=== PATIENT | female | born 1955 | race Caucasian/White ===

== ENCOUNTER 2020-09-20 07:09 | Outpatient (CLI) | payer BC, SELFPAY ==
--- NOTE | 2020-09-20 07:18 | MM_ITS ---
WS: [id number] Bilateral screening digital mammogram, 09/20/2020 Clinical Data: SCREENING Comparison: 02/05/2019, 07/21/2013, 01/23/2010, 12/29/2006. Findings: The breast parenchymal pattern shows fibroglandular tissue. No spiculated masses or clustered calcifi cations are seen. There are no secondary signs of carcinoma. MM/[id number] Impression: 1. Negative bilateral mammogram unchanged. 2. Recommend annual screening mammograms. BIRADS: 1-Negative FOLLOW UP: 1 Year Follow-up The CAD pattern checker was used.
== END 2020-09-20 07:10 | disposition home or self-care (01) ==
LOC: RADSHAW 07:17
PROVIDERS: PCP Family Medicine; Visit Provider Nurse Practitioner
DX: Z12.31 Encounter for screening mammogram for malignant neoplasm of breast (principal)
CPT/HCPCS: 77067

== ENCOUNTER 2020-10-08 04:45 | Emergency (ER) | payer BC, SELFPAY ==
[2020-10-08 04:57] VITALS: BP 148/83; PULSE 57; RESP 16; TEMP 36.6; O2SAT 99; BMI 32.3
--- NOTE | 2020-10-08 05:23 | ECG_ITS ---
[facility] Test Date: 2020-10-08 Pat Name: Cleopatra Mcguire Department: Room: Gender: Female Neon Installer: : 1955 Requested By: Marcial Herring Order Number: [id number] Irlanda MD: Elijah Darling M.D. Measurements Intervals [place] Rate: 53 P: 12 MD: 165 QRS: -1 QRSD: 97 T: 15 QT: 453 QTc: 426 Interpretive Statements SINUS BRADYCARDIA MODERATE VOLTAGE CRITERIA FOR LVH, CONSIDER NORMAL VARIANT [MEETS CRITERIA IN ONE OF: R(aVL), S(V1), R(V5), R(V5/V6)+S(V1)] No previous ECG available for comparison Electronically Signed On 10-08-2020 11:15:19 PROJECT DEVELOPER by Elijah Darling M.D. [id number]
--- NOTE | 2020-10-08 05:23 | XRR_ITS ---
PROCEDURE INFORMATION: Exam: XR Chest, 1 View Exam date and time: 10/08/2020 5:24 AM Age: 65 years old Clinical indication: Shortness of breath; Additional info: Syncope TECHNIQUE: Imaging protocol: XR of the chest Views: 1 view. COMPARISON: No relevant prior studies available. FINDINGS: Lungs: Unremarkable. No consolidation. Pleural space: Unremarkable. No pleural effusion. No pneumothorax. Heart/Mediastinum: Unremarkable. No cardiomegaly. Bones/joints: Unremarkable. XR/XR chest 1V portable [id number] IMPRESSION: No acute findings.
--- NOTE | 2020-10-08 05:24 | W.ED.SYNCOPE ---
Documented by User: Marcial Stuart, 10/08/20 06:18 HPI - Syncope General: Chief Complaint: Syncope Stated Complaint: LOSS of Con. Time Seen by Provider: 10/08/20 05:07 History of Present Illness: HPI narrative: 65-year-old female presents after a period of syncope. She states that she woke up coughing, was a bit short of breath with it, and went to get her inhaler out of her purse. After she made it to her purse, and used her inhaler, she blacked out. Her heard her hit the floor, and when in a couple of minutes later where she was staring in the floor and beginning to recover at that point. He says that she was not shaking. She returned to baseline very quickly upon waking. She denies any chest pain or discomfort. She denies fever, significant shortness of breath following, vomiting or diarrhea. She is not had syncopal episodes in the past. She has no history of heart disease. She does have a history of a asthmatic cough , for which she uses an inhaler. MD complaint: loss of consciousness Onset (ago): minute(s) Prodromal symptoms: other Witnessed: No Context: other (while coughing) Associated symptoms: Deny abdominal pain, chest pain, fever(s), headache(s), nausea or vertigo Review of Systems Const: Denies: fever(s) or chills Eyes: Denies: change in vision ENMT: Denies: odynophagia, swelling of lips/tongue or sinus pain Card: Denies: chest pain, palpitations, irregular heart rhythm or edema Resp: Reports: non-productive cough; Denies: dyspnea or productive cough GI: Denies: abdominal pain, nausea, vomiting or melena : Denies: dysuria or hematuria Musc: Denies: neck pain or back pain Skin/Breast: Denies: rash or erythema Neuro: Denies: headache(s), dizziness, vertigo, confusion or seizure-like activity Psych: Denies: anxiety Physical Exam Const: GENERAL APPEARANCE: well developed ORIENTATION/CONSCIOUSNESS: Yes oriented to person, Yes oriented to place and Yes oriented to time HENMT: COMMON NORMALS: normocephalic, external ears normal and Normal external nose present HEAD & SCALP: normocephalic; no scalp tenderness FACE & SINUS: normal facial exam NOSE: Normal external nose present and No nasal discharge present EXTERNAL EAR: Yes external ears normal Eye: COMMON NORMALS: Equal, round and reactive pupils present, EOMs intact bilaterally and conjunctivae normal EYELID: eyelids normal CONJUNCTIVA: Yes conjunctivae normal PUPIL: Yes Equal, round and reactive pupils present Neck/C-Spine: GENERAL: No tracheal deviation CERVICAL SPINE: No Cervical spine tenderness Chest: COMMONS NORMALS: normal inspection of the chest CHEST: No tenderness Resp: COMMON NORMALS: clear to auscultation bilaterally EFFORT & INSPECTION: No tachypneic, No respiratory distress, No retractions, No uses accessory muscles and No tracheal deviation AUSCULTATION: clear to auscultation bilaterally, no rhonchi, no wheezes and lung sounds not diminished Cardio: COMMON NORMALS: regular rate and regular rhythm RATE: regular rate RHYTHM: regular rhythm HEART SOUNDS: no murmurs PERIPHERAL PULSES: radial pulses present GI: INSPECTION: No abdominal distension AUSCULTATION: No Hyperactive bowel sounds present and No Hypoactive bowel sounds present PALPATION: No Guarding due to palpation present (GI) and No Rigid due to palpation PERCUSSION: no dullness to percussion and no tympanic to percussion Neuro: SENSORIUM/ORIENTATION: Yes oriented to person, Yes oriented to place and Yes oriented to time COORDINATION/BALANCE: olqwyo-mw-fazt test normal and jpzd-fv-hnjp test normal SPEECH: speech normal SENSORY EXAM: Yes extremities MOTOR EXAM: Pronator motor function not present COORDINATION: azljvi-ps-qkmy test normal and lnoq-ev-lpou test normal Psych: COMMON NORMALS: mental status grossly normal Skin: COMMON NORMALS: no rashes or lesions noted GENERAL SKIN EXAM: no rashes or lesions noted Course Vital Signs: Vital signs: Vital Signs Temperature 97.9 F 10/08/20 04:57 Pulse Rate 70 10/08/20 08:27 Respiratory Rate 15 10/08/20 08:27 Blood Pressure 150/98 10/08/20 08:27 Pulse Oximetry 97 10/08/20 08:27 MDM - Syncope MDM Narrative: Medical decision making narrative: 65-year-old female with a syncopal episode. She is essentially asymptomatic currently. Labs are pending. Head CT is pending. She will be checked out to Dr. Aleman at shift change. Lab Data: Labs: Lab Results 10/08/20 10/08/20 10/08/20 Range/Units 05:40 05:45 05:45 WBC 10.1 H (4.0-10.0) 10^3/ uL RBC 4.28 (4.1-5.3) 10^6/u L Hgb 13.2 (11.5-15.3) g/dL Hct 39.3 (37.0-47.0) % MCV 91.8 (81-99) fL MCH 30.8 (28.0-34.0) pg MCHC 33.6 (30.0-36.0) g/dL RDW 12.4 (12.1-15.1) % Plt Count 266 (130-400) 10^3/c mm MPV 10.6 H (7.4-10.4) fL Neut % (Auto) 69.1 % Lymph % (Auto) 26.4 % [place] % (Auto) 2.6 % Eos % (Auto) 1.3 % Baso % (Auto) 0.2 % Neut # (Auto) 6.96 (1.8-7.7) 10^3/u L Lymph # (Auto) 2.7 (0.8-4.8) 10^3/u L [place] # (Auto) 0.3 (0.2-0.9) 10^3/u L Eos # (Auto) 0.1 (0.0-0.8) 10^3/u L Baso # (Auto) 0.0 (0.0-0.1) 10^3/u L Nucleated RBC % (a uto) 0 % Nucleated RBCs # 0.0 /100WBC Sodium 139 (136-145) mmol/L Potassium 3.1 L (3.5-5.1) mmol/L Chloride 101 (98-107) mmol/L Carbon Dioxide 24 (22-29) mmol/L Anion Gap 17.1 (5-19) BUN 14 (8-23) mg/dL Creatinine 0.8 (0.5-0.9) mg/dL GFR Calculation 72.4 L (90-130) mL/min Glucose 156 H (65-115) mg/dL Calculated Osmolal ity 292 (285-295) mOsm/k g Calcium 9.5 (8.5-10.5) mg/dL Magnesium 1.8 (1.7-2.3) mg/dL Total Bilirubin 0.3 (0.15-1.2) mg/dL AST 19 (0-32) U/L ALT 19 (0-33) U/L Alkaline Phosphata se 92 (35-105) IU/L Creatine Kinase 86 (26-192) U/L Troponin T Baselin e (0-10) ng/L Troponin T 120 Min [place] (0-10) ng/L Delta Troponin T (0-10) ABS# Total Protein 7.0 (6.6-8.7) g/dL Albumin 4.5 (3.5-5.2) g/dL Globulin 2.5 (1.3-4.6) g/dL 10/08/20 10/08/20 Range/Units 05:45 07:23 WBC (4.0-10.0) 10^3/ uL RBC (4.1-5.3) 10^6/u L Hgb (11.5-15.3) g/dL Hct (37.0-47.0) % MCV (81-99) fL MCH (28.0-34.0) pg MCHC (30.0-36.0) g/dL RDW (12.1-15.1) % Plt Count (130-400) 10^3/c mm MPV (7.4-10.4) fL Neut % (Auto) % Lymph % (Auto) % [place] % (Auto) % Eos % (Auto) % Baso % (Auto) % Neut # (Auto) (1.8-7.7) 10^3/u L Lymph # (Auto) (0.8-4.8) 10^3/u L [place] # (Auto) (0.2-0.9) 10^3/u L Eos # (Auto) (0.0-0.8) 10^3/u L Baso # (Auto) (0.0-0.1) 10^3/u L Nucleated RBC % (a uto) % Nucleated RBCs # /100WBC Sodium (136-145) mmol/L Potassium (3.5-5.1) mmol/L Chloride (98-107) mmol/L Carbon Dioxide (22-29) mmol/L Anion Gap (5-19) BUN (8-23) mg/dL Creatinine (0.5-0.9) mg/dL GFR Calculation (90-130) mL/min Glucose (65-115) mg/dL Calculated Osmolal ity (285-295) mOsm/k g Calcium (8.5-10.5) mg/dL Magnesium (1.7-2.3) mg/dL Total Bilirubin (0.15-1.2) mg/dL AST (0-32) U/L ALT (0-33) U/L Alkaline Phosphata se (35-105) IU/L Creatine Kinase (26-192) U/L Troponin T Baselin e 6 (0-10) ng/L Troponin T 120 Min [place] 6.00 (0-10) ng/L Delta Troponin T 0 (0-10) ABS# Total Protein (6.6-8.7) g/dL Albumin (3.5-5.2) g/dL Globulin (1.3-4.6) g/dL Discharge Plan Discharge Patient Disposition: Home Clinical Impression: Cough syncope syndrome Condition: Stable Discharge Orders: Discharge Order (Routine); Ordered 10/08/20 Ordered By: Anitha Aleman Referrals: Elijah Darling M.D [Physician] - 1-3 days Kev Wright Jr, MD [Primary Care Provider] - 1-3 days Discharge Diet: Advance as tolerated Discharge Activity: Increase activity as tolerated Patient Instructions: Syncope (ED) Activity Restrictions/Additional Instructions: Please return to the ER immediately for any of the signs or symptoms listed on your discharge instruction sheets, worsening/changing of your symptoms, you are not getting better as quickly as expected, or for ANY other cause or concerns. Our case management department will contact you with an appointment to be seen by one of our forder operator. Before then please try to follow-up with Dr. Wright. If you develop chest pain, shortness of breath, you faint or nearly fainted again, you develop leg swelling or have any other concerns please return to the ER immediately for recheck. Sign Out Sign Out Data: Patient Sign Out occurred on 10/08/20 at 06:28. Patient's care was discussed, and care was transferred from to Anitha Aleman. Coding Level of Care Code ED Hoof Trimmer for Chg Fwd Exam Comprehensive Documented by User: Anitha Aleman 10/08/20 12:42 HPI - Syncope General: Chief Complaint: Syncope Stated Complaint: LOSS of Con. Time Seen by Provider: 10/08/20 05:07 Course Vital Signs: Vital signs: Vital Signs Temperature 97.9 F 10/08/20 04:57 Pulse Rate 70 10/08/20 08:27 Respiratory Rate 15 10/08/20 08:27 Blood Pressure 150/98 10/08/20 08:27 Pulse Oximetry 97 10/08/20 08:27 MDM - Syncope MDM Narrative: Medical decision making narrative: Mrs. Mcguire is a very nice 65-year-old female who comes in after a syncopal spell. She states she was short of breath and coughing as she usually is from her asthma just before she apparently fainted. Patient states that she did not really hurt anything when she fell. She states that she does not believe she was out for more than just a few seconds. Patient's history sounds consistent with cough induced syncope. Her EKG does show mild LVH but otherwise shows no sign of acute life-threatening arrhythmia such as Ctfmw-Rbuzhrmkh-Kizyt syndrome, obstructed AV pathway, bifascicular block, Brugada syndrome, epsilon wave or short or long QT syndrome. Patient's LVH is mild and there is no sign of cardiomegaly on chest x-ray. Patient's troponins are negative x2. I believe she is safe for discharge. She agrees to follow-up with a forder operator as an outpatient or return here sooner if necessary. Patient has no questions or concerns and states this is the way she wants to proceed forth. She understands she is welcome to return here if she change her mind or her symptoms change at all. Lab Data: Attestation: I reviewed the patient's lab results. Labs: Lab Results 10/08/20 10/08/20 10/08/20 Range/Units 05:40 05:45 05:45 WBC 10.1 H (4.0-10.0) 10^3/ uL RBC 4.28 (4.1-5.3) 10^6/u L Hgb 13.2 (11.5-15.3) g/dL Hct 39.3 (37.0-47.0) % MCV 91.8 (81-99) fL MCH 30.8 (28.0-34.0) pg MCHC 33.6 (30.0-36.0) g/dL RDW 12.4 (12.1-15.1) % Plt Count 266 (130-400) 10^3/c mm MPV 10.6 H (7.4-10.4) fL Neut % (Auto) 69.1 % Lymph % (Auto) 26.4 % [place] % (Auto) 2.6 % Eos % (Auto) 1.3 % Baso % (Auto) 0.2 % Neut # (Auto) 6.96 (1.8-7.7) 10^3/u L Lymph # (Auto) 2.7 (0.8-4.8) 10^3/u L [place] # (Auto) 0.3 (0.2-0.9) 10^3/u L Eos # (Auto) 0.1 (0.0-0.8) 10^3/u L Baso # (Auto) 0.0 (0.0-0.1) 10^3/u L Nucleated RBC % (a uto) 0 % Nucleated RBCs # 0.0 /100WBC Sodium 139 (136-145) mmol/L Potassium 3.1 L (3.5-5.1) mmol/L Chloride 101 (98-107) mmol/L Carbon Dioxide 24 (22-29) mmol/L Anion Gap 17.1 (5-19) BUN 14 (8-23) mg/dL Creatinine 0.8 (0.5-0.9) mg/dL GFR Calculation 72.4 L (90-130) mL/min Glucose 156 H (65-115) mg/dL Calculated Osmolal ity 292 (285-295) mOsm/k g Calcium 9.5 (8.5-10.5) mg/dL Magnesium 1.8 (1.7-2.3) mg/dL Total Bilirubin 0.3 (0.15-1.2) mg/dL AST 19 (0-32) U/L ALT 19 (0-33) U/L Alkaline Phosphata se 92 (35-105) IU/L Creatine Kinase 86 (26-192) U/L Troponin T Baselin e (0-10) ng/L Troponin T 120 Min [place] (0-10) ng/L Delta Troponin T (0-10) ABS# Total Protein 7.0 (6.6-8.7) g/dL Albumin 4.5 (3.5-5.2) g/dL Globulin 2.5 (1.3-4.6) g/dL 10/08/20 10/08/20 Range/Units 05:45 07:23 WBC (4.0-10.0) 10^3/ uL RBC (4.1-5.3) 10^6/u L Hgb (11.5-15.3) g/dL Hct (37.0-47.0) % MCV (81-99) fL MCH (28.0-34.0) pg MCHC (30.0-36.0) g/dL RDW (12.1-15.1) % Plt Count (130-400) 10^3/c mm MPV (7.4-10.4) fL Neut % (Auto) % Lymph % (Auto) % [place] % (Auto) % Eos % (Auto) % Baso % (Auto) % Neut # (Auto) (1.8-7.7) 10^3/u L Lymph # (Auto) (0.8-4.8) 10^3/u L [place] # (Auto) (0.2-0.9) 10^3/u L Eos # (Auto) (0.0-0.8) 10^3/u L Baso # (Auto) (0.0-0.1) 10^3/u L Nucleated RBC % (a uto) % Nucleated RBCs # /100WBC Sodium (136-145) mmol/L Potassium (3.5-5.1) mmol/L Chloride (98-107) mmol/L Carbon Dioxide (22-29) mmol/L Anion Gap (5-19) BUN (8-23) mg/dL Creatinine (0.5-0.9) mg/dL GFR Calculation (90-130) mL/min Glucose (65-115) mg/dL Calculated Osmolal ity (285-295) mOsm/k g Calcium (8.5-10.5) mg/dL Magnesium (1.7-2.3) mg/dL Total Bilirubin (0.15-1.2) mg/dL AST (0-32) U/L ALT (0-33) U/L Alkaline Phosphata se (35-105) IU/L Creatine Kinase (26-192) U/L Troponin T Baselin e 6 (0-10) ng/L Troponin T 120 Min [place] 6.00 (0-10) ng/L Delta Troponin T 0 (0-10) ABS# Total Protein (6.6-8.7) g/dL Albumin (3.5-5.2) g/dL Globulin (1.3-4.6) g/dL Imaging Data^: CXR: Attestation: I personally reviewed and interpreted this imaging study as follows: My impression: No acute cardiopulmonary findings. CT Head: Radiologist's impression: [address] [address] [address] Scan Report Signed Patient: Cleopatra Mcguire #: [id number] : 7Acct#:[id number] Age/Sex: 65 / FADM Date: 10/08/20 [facility] Dr: Ordering Provider/Ordering MD: Marcial Stuart DO Date of Service: 10/08/20 Procedure(s): CT head wo con* [id number] Accession Number(s): [id number] Report Number: [id number] PROCEDURE INFORMATION: Exam: CT Head Without Contrast Exam date and time: 10/08/2020 6:11 AM Age: 65 years old Clinical indication: Syncope and collapse TECHNIQUE: Imaging protocol: Computed tomography of the head without contrast. Radiation optimization: All CT scans at this facility use at least one of these dose optimization techniques: automated exposure control; mA and/or kV adjustment per patient size (includes targeted exams where dose is matched to clinical indication); or iterative reconstruction. COMPARISON: No relevant prior studies available. RADIATION DOSE METRICS: Total DLP (mGy-cm): 752.09 FINDINGS: Brain: Normal. No hemorrhage. Unremarkable white matter. No mass effect. Cerebral ventricles: No ventriculomegaly. Bones/joints: Unremarkable. No acute fracture. Paranasal sinuses: Visualized sinuses are unremarkable. No fluid levels. Mastoid air cells: Visualized mastoid air cells are well aerated. Soft tissues: Unremarkable. CT/CT head wo con* [id number] IMPRESSION: No acute intracranial abnormality. Radiation Dose CTDIVOL = (mGy): DLP = 752.09 (mGy-cm) Dictated By:Saji Dewitt Signed By:Mague Dewittigned Date/Time:10/08/20626 DD/ 5 EKG Data^: EKG 1: Attestation: I personally reviewed and interpreted this EKG as follows: EKG interpretation date: 10/08/20 EKG interpretation time: 05:11 Interpretation: Normal sinus rhythm at 53 beats a minute, no blocks, normal intervals, LVH, no acute ST-T wave changes. EKG 2: Attestation: I personally reviewed and interpreted this EKG as follows: EKG interpretation date: 10/08/20 EKG interpretation time: 07:44 Interpretation: Normal sinus rhythm at 67 beats a minute, no blocks, normal intervals, LVH, normal ST and T wave findings. Discharge Plan Discharge Patient Disposition: Home Clinical Impression: Cough syncope syndrome Condition: Stable Discharge Orders: Discharge Order (Routine); Ordered 10/08/20 Ordered By: Anitha Aleman Referrals: Elijah Darling M.D [Physician] - 1-3 days Kev Wright Jr, MD [Primary Care Provider] - 1-3 days Discharge Diet: Advance as tolerated Discharge Activity: Increase activity as tolerated Patient Instructions: Syncope (ED) Activity Restrictions/Additional Instructions: Please return to the ER immediately for any of the signs or symptoms listed on your discharge instruction sheets, worsening/changing of your symptoms, you are not getting better as quickly as expected, or for ANY other cause or concerns. Our case management department will contact you with an appointment to be seen by one of our forder operator. Before then please try to follow-up with Dr. Wright. If you develop chest pain, shortness of breath, you faint or nearly fainted again, you develop leg swelling or have any other concerns please return to the ER immediately for recheck. Sign Out Sign Out Data: Patient Sign Out occurred on 10/08/20 at 06:28. Patient's care was discussed, and care was transferred from to Anitha Aleman. Coding Level of Care Code ED Hoof Trimmer for Tamir Fwd Exam Comprehensive
[2020-10-08 05:42] VITALS: BP 175/105; PULSE 61; RESP 18; O2SAT 97
[2020-10-08 05:52] LABS: Basophils % 0.2 %; Eosinophils # 0.1 10^3/uL (0.0-0.8); Eosinophils % 1.3 %; Hematocrit 39.3 % (37.0-47.0); Hemoglobin 13.2 g/dL (11.5-15.3); Lymphocytes # 2.7 10^3/uL (0.8-4.8); Lymphocytes % 26.4 %; Mean Corpuscular HGB Conc 33.6 g/dL (30.0-36.0); Mean Corpuscular Hemoglobin 30.8 pg (28.0-34.0); Mean Corpuscular Volume 91.8 fL (81-99); Mean Platelet Volume 10.6 fL (7.4-10.4); Monocytes # 0.3 10^3/uL (0.2-0.9); Monocytes % 2.6 %; Neutrophils # 6.96 10^3/uL (1.8-7.7); Neutrophils % 69.1 %; Nucleated Red Blood Cells % 0 %; Platelet Count 266 10^3/cmm (130-400); Red Blood Count 4.28 10^6/uL (4.1-5.3); Red Cell Distribution Width 12.4 % (12.1-15.1); White Blood Count 10.1 10^3/uL (4.0-10.0)
[2020-10-08 06:15] LABS: Alanine Aminotransferase 19 U/L (0-33); Albumin Level 4.5 g/dL (3.5-5.2); Alkaline Phosphatase 92 IU/L (35-105); Anion Gap 17.1 (5-19); Aspartate Amino Transferase 19 U/L (0-32); Blood Urea Nitrogen 14 mg/dL (8-23); Calcium 9.5 mg/dL (8.5-10.5); Carbon Dioxide 24 mmol/L (22-29); Chloride 101 mmol/L (98-107); Creatine Phosphokinase 86 U/L (26-192); Globulin 2.5 g/dL (1.3-4.6); Glomerular Filtration Rate 72.4 mL/min (90-130); Glucose 156 mg/dL (65-115); Osmolality Calculated 292 mOsm/kg (285-295); Potassium 3.1 mmol/L (3.5-5.1); Sodium 139 mmol/L (136-145); Total Bilirubin 0.3 mg/dL (0.15-1.2)
[2020-10-08 06:22] LABS: Troponin(5th) Baseline 6 ng/L (0-10)
[2020-10-08 06:52] VITALS: BP 163/75; PULSE 69; RESP 18; O2SAT 97
[2020-10-08 06:53] VITALS: BP 133/76; BP 140/91; BP 153/76; PULSE 63; PULSE 69; PULSE 81
[2020-10-08 07:10] LABS: Magnesium 1.8 mg/dL (1.7-2.3)
[2020-10-08] MEDS: potassium chloride oral liq 20 mEq/15 mL UDC 40 MEQ PO (08:10)
[2020-10-08 08:16] LABS: Troponin 5 2HR Delta 0 ABS# (0-10)
[2020-10-08 08:27] VITALS: BP 150/98; PULSE 70; RESP 15; O2SAT 97
--- NOTE | 2020-10-08 11:23 | ECG_ITS ---
[facility] Test Date: 2020-10-08 Pat Name: Cleopatra Mcguire Department: Room: Gender: Female Muleser: : 1955 Requested By: Marcial Herring Order Number: [id number] Irlanda MD: Elijah Darling M.D. Measurements Intervals [place] Rate: 67 P: 7 NV: 162 QRS: -5 QRSD: 88 T: 4 QT: 398 QTc: 421 Interpretive Statements SINUS RHYTHM MODERATE VOLTAGE CRITERIA FOR LVH, CONSIDER NORMAL VARIANT [MEETS CRITERIA IN ONE OF: R(aVL), S(V1), R(V5), R(V5/V6)+S(V1)] Compared to ECG 10/08/2020 05:11:17 Sinus bradycardia no longer present Electronically Signed On 10-08-2020 19:09:57 BINDER AND BOX BUILDER by Elijah Darling M.D. [id number]
--- NOTE | 2020-10-09 11:44 | DCPLANNER ---
hydro plant site manager had message to schedule a follow up appointment for patient with [facility]. hydro plant site manager called [facility], spoke with Ashley, a follow up appointment was scheduled for Saturday, October 10, 2020 at 2:[address] Darling. hydro plant site manager called patient with appointment information, patient stated that she would attend the appointment.
--- NOTE | 2020-10-31 15:02 | DCPLANNER ---
Patient had a follow up appointment scheduled for 10.10.20 with [facility] - patient did attend appointment.
== END 2020-10-08 08:28 | disposition home or self-care (01) ==
PROVIDERS: Emergency Medicine; Emergency Provider Emergency Medicine; PCP Family Medicine
DX: R05 Cough (principal); R55 Syncope and collapse
CPT/HCPCS: 12345; 70450; 71045; 80053; 82550; 83735; 84484; 85025; 93005; 99282; 99283

== ENCOUNTER 2020-12-11 13:19 | Outpatient (CLI) | payer OTHER, SELFPAY ==
--- NOTE | 2020-12-11 13:29 | USCV_ITS ---
Cleopatra Mcguire Age: 65 Gender: F : 1955 Exam Date: 12/11/2020 13:50 Ordering Phys: Elijah Darling M.D ([email or web address]) Technologist: Curtis Zurita Exam Location: [facility] [place] Indication: SYNCOPE AND COLLAPSE BP: 112 / 68 HR: 60 Rhythm: Sinus Technical Quality: Good MEASUREMENTS (Male / Female) Normal Values 2D ECHO LV Diastolic Diameter PLAX 4.1 cm 4.2 - 5.9 / 3.9 - 5.3 cm LV Systolic Diameter PLAX 2.3 cm IVS Diastolic Thickness 1.8 cm 0.6 - 1.0 / 0.6 - 0.9 cm IVS Systolic Thickness 2.2 cm LVPW Diastolic Thickness 1.1 cm 0.6 - 1.0 / 0.6 - 0.9 cm LVPW Systolic Thickness 2.0 cm LVOT Diameter 2.0 cm LV Ejection Fraction 2D Teich 76.4 % LV Ejection Fraction MOD 2C 65.4 % LV Ejection Fraction 2C AL 62.8 % LA Diameter 3.6 cm LA Width 2.9 cm LA Height 3.9 cm RA Width 2.8 cm RA Height 4.3 cm Aorta at Sinotubular Diameter 2.7 cm M-MODE LV Diastolic Diameter MM 5.1 cm 4.2 - 5.9 / 3.9 - 5.3 cm LV Systolic Diameter MM 2.4 cm LV Ejection Fraction MM Teich 84.5 % IVS Diastolic Thickness MM 1.8 cm 0.6 - 1.0 / 0.6 - 0.9 cm IVS Systolic Thickness MM 3.0 cm LVPW Diastolic Thickness MM 1.2 cm 0.6 - 1.0 / 0.6 - 0.9 cm LVPW Systolic Thickness MM 1.5 cm Aortic Annulus Diameter 2.9 cm LA Ao Ratio MM 1.4 MV E Point Septal Separation 0.4 cm DOPPLER AV Peak Velocity 123.0 cm/s LVOT Peak Velocity 86.0 cm/s AV Area Cont Eq vti 2.4 cm squared AV Area Cont Eq pk 2.3 cm squared MV Area PHT 3.9 cm squared Mitral E to A Ratio 0.8 MV E' Velocity 32.0 cm/s Mitral E to MV E' Ratio 5.7 Mitral E to LV E' Lateral Ratio 5.8 Mitral E to LV E' Septal Ratio 5.6 TR Peak Velocity 252.3 cm/s TR Peak Gradient 25.5 mmHg PV Peak Velocity 74.0 cm/s RV Acceleration Time 0.1 s RV Ejection Time 0.3 s RV AcT/ET 0.4 FINDINGS Left Ventricle Normal left ventricular size and systolic function with no regional wall motion abnormalities. LVEF is 55 to 60%. Grade 1 diastolic dysfunction. Right Ventricle The right ventricle is normal in size and function. Right Atrium The right atrium is normal in size. Left Atrium The left atrium is normal in size. Mitral Valve Structurally normal mitral valve without significant stenosis or prolapse. There is mild mitral regurgitation. Aortic Valve Structurally normal aortic valve without significant sclerosis or stenosis. There is no aortic regurgitation. Tricuspid Valve Structurally normal tricuspid valve without significant stenosis. Mild tricuspid regurgitation is seen. RVSP is 25 to 30 mmHg. Pulmonic Valve Structurally normal pulmonic valve without significant stenosis. There is mild pulmonic regurgitation. Pericardium Normal pericardium without effusion. Aorta Normal ascending aorta dimension. CONCLUSIONS LV systolic function is normal with EF of 55 to 60%. Normal diastolic function. Mild mitral regurgitation, mild tricuspid regurgitation and mild pulmonic regurgitation seen. No comparison studies are available. Elijah Darling MD (Electronically Signed) Final Date: 19 December 2020 19:17 S
== END 2020-12-11 13:20 | disposition home or self-care (01) ==
LOC: US 13:22
PROVIDERS: PCP Nurse Practitioner Family; Visit Provider Internal Medicine
DX: I08.1 Rheumatic disorders of both mitral and tricuspid valves (principal); R55 Syncope and collapse
CPT/HCPCS: 93306

== ENCOUNTER 2022-03-29 12:58 | Outpatient (CLI) | payer OTHER, SELFPAY ==
--- NOTE | 2022-03-29 13:12 | XR_ITS ---
WS: [id number] DEXA (DUAL ENERGY X-RAY ABSORPTIOMETRY) Bone mineral density was performed using a [employer] machine. HISTORY: ASYMPTOMATIC MENOPAUSAL STATE COMPARISON: None available. Lumbar spine BMD (L1-L4): 1.353 g/cm2 T score: 1.4 Z score: 2.3 Total hip BMD: Left: 0.975 g/cm2. T score: -0.3 Z score: 0.4 Right: 0.992 g/cm2. T score: -0.1 Z score: 0.6 10 year probability of a major osteoporotic fracture is 8.3%. XR/XR DEXA axial skeleton* [id number] IMPRESSION: NORMAL BONE MINERAL DENSITY based upon the WHO classification for females.
== END 2022-03-29 12:59 | disposition home or self-care (01) ==
LOC: RAD 13:01
PROVIDERS: PCP Nurse Practitioner Family; Visit Provider Nurse Practitioner Family
DX: Z13.820 Encounter for screening for osteoporosis (principal); Z78.0 Asymptomatic menopausal state
CPT/HCPCS: 77080

== ENCOUNTER 2022-05-01 10:24 | Outpatient (CLI) | payer OTHER, SELFPAY ==
--- NOTE | 2022-05-01 13:16 | PFTS_ITS ---
Date of Study:05/01/22 Date of Dictation: 05/02/2022 MECHANICS: Prebronchodilator forced vital capacity (FVC) is normal Prebronchodilator forced expiratory volume in one second (FEV1) is normal FEV1/FVC is normal There is no postbronchodilator study. FLOW VOLUME LOOP: Normal LUNG VOLUMES: Total lung capacity (TLC) is normal. Residual volume ( RV) is normal DIFFUSING CAPACITY FOR CARBON MONOXIDE: Normal . INTERPRETATION: The pulmonary function tests are normal. MTDD
== END 2022-05-01 10:25 | disposition home or self-care (01) ==
LOC: RT 10:24
PROVIDERS: PCP Nurse Practitioner Family; Visit Provider Nurse Practitioner Family
DX: R05.3 Chronic cough (principal)
CPT/HCPCS: 94010; 94726; 94729

== ENCOUNTER 2022-05-10 11:41 | Outpatient (CLI) | payer OTHER, SELFPAY ==
--- NOTE | 2022-05-10 11:55 | MM_ITS ---
WS: [id number] VIEWS: MLO and CC views both breasts. 3D digital tomosynthesis is also included in this exam. Comparison made with prior exam of 12/29/2006 07/21/2013, 02/05/2019, 09/20/2020.. Findings: There was no sign of mass, architectural distortion or suspicious calcification in either breast. Fa tty MM/[place] [id number] Impression: BI-RADS: 2-Benign FOLLOW-UP: 1 Year Follow-up This mammogram was also analyzed by the Computer Aided Detection System R2 Imag e Air Brakes Inspector.
== END 2022-05-10 11:42 | disposition home or self-care (01) ==
LOC: RAD 11:42
PROVIDERS: PCP Nurse Practitioner Family; Visit Provider Nurse Practitioner Family
DX: Z12.31 Encounter for screening mammogram for malignant neoplasm of breast (principal)
CPT/HCPCS: 77063; 77067

== ENCOUNTER 2023-03-14 13:47 | Outpatient (CLI) | payer OTHER, SELFPAY ==
--- NOTE | 2023-03-14 13:57 | XR_ITS ---
WS: [id number] Exam: XR chest 2V* [id number] Date/Time of Exam: 03/14/2023 2:01 PM Reason For Exam: CHRONIC COUGH/SHORTNESS OF BREATH Comparison 10/08/2020. The lungs are clear and fully expanded. Normal cardiomediastinal silhouette and regional bony element s. No pleural effusions. Mild spondylosis of the dorsal spine. XR/XR chest 2V* [id number] IMPRESSION: 1. No acute cardiopulmonary finding.
== END 2023-03-14 13:48 | disposition home or self-care (01) ==
LOC: RAD 13:52
PROVIDERS: PCP Nurse Practitioner Family; Visit Provider Nurse Practitioner Family
DX: R05.3 Chronic cough (principal); R06.02 Shortness of breath
CPT/HCPCS: 71046

== ENCOUNTER 2023-09-29 12:04 | Outpatient (CLI) | payer MEDICARE, SELFPAY ==
--- NOTE | 2023-09-29 12:17 | XR_ITS ---
WS: [id number] Exam: XR chest 2V* [id number] Date/Time of Exam: 09/29/2023 12:20 PM Reason For Exam: Chronic cough Comparison 03/14/2023. Lungs are clear and fully inflated. Normal cardiomediastinal silhouette. No pleural effusions. Bony s tructures are intact. Spondylosis of the T-spine. IMPRESSION: 1. No acute cardiopulmonary finding.
== END 2023-09-29 12:05 | disposition home or self-care (01) ==
LOC: RAD 12:08
PROVIDERS: PCP Nurse Practitioner Family; Visit Provider Nurse Practitioner Family
DX: R05.3 Chronic cough (principal)
CPT/HCPCS: 71046

== ENCOUNTER 2023-10-13 10:56 | Outpatient (CLI) | payer MEDICARE, SELFPAY ==
--- NOTE | 2023-10-13 10:59 | MM_ITS ---
WS: [id number] BILATERAL 3D TOMOSYNTHESIS DIGITAL SCREENING MAMMOGRAPHY WITH CAD CLINICAL INFORMATION: SCREENING HISTORY: Screening mammogram. No current complaints. COMPARISON: 2021 TECHNIQUE: Bilateral CC and MLO views. FINDINGS: Scattered fibroglandular densities bilaterally. No suspicious focal mass, asymmetry, calcifications, or architectural distortion. No evidence of malignancy. Incidental punctate calcifications. IMPRESSION: MM/[place] [id number] BI-RADS: 2-Benign FOLLOW UP: 1 Year Follow-up Recommend return to annual screening mammography.
== END 2023-10-13 10:57 | disposition home or self-care (01) ==
LOC: RAD 10:56
PROVIDERS: PCP Nurse Practitioner Family; Visit Provider Nurse Practitioner Family
DX: Z12.31 Encounter for screening mammogram for malignant neoplasm of breast (principal)
CPT/HCPCS: 77063; 77067

== ENCOUNTER 2024-10-20 08:00 | Outpatient (CLI) | payer MEDICARE, SELFPAY ==
--- NOTE | 2024-10-20 08:04 | CT_ITS ---
WS: [email or web address] CT chest wo con [id number] HISTORY: CHRONIC COUGH TECHNIQUE: Axial imaging performed through the thorax. Coronal and sagittal reformats are submitted. All CT scans at [facility] use at least one of these dose optimization techniques: automated exposure control; mA and/or kV adjustment per patient size (includes targeted exams where dose is mat ched to clinical indication); or iterative reconstruction. CONTRAST: None DLP: 520.12 mGy.cm COMPARISON: 08/19/2013 Lungs and central airway: Lungs are very slightly hyperinflated. New well-circumscribed 6 mm noncalci fied pulmonary nodule in the LEFT upper lobe. No additional mass or nodule. Pleura: Normal. No pleural effusion. Heart and pericardium: Normal size heart with no pericardial effusion. Mediastinum and kel: No mediastinum or hilar adenopathy. Vessels: Normal size aortic and pulmonary artery. No coronary artery calcifications. Chest wall and lower neck: No soft tissue masses. Upper abdomen: Mild hepatic steatosis. Negative gallbladder. No adrenal mass. Osseous structures: No destructive process. CT/CT chest wo con [id number] IMPRESSION: 1. New, 6 mm noncalcified LEFT upper lobe pulmonary nodule. Indeterminate solid pulmonary nodule measuring 6 mm. In a patient of unknown ri sk level with a solid nodule of 6-8 mm, recommend CT at 6-12 months. In a low-r isk patient, then consider CT at 18-24 months. In a high-risk patient, if the n odule is stable at 6-12 months, recommend CT at 18-24 months. A non-calcified 6 mm solid nodule in the left upper lobe is indeterminate. 2. Mild pulmonary hyperexpansion. No pneumonia. Mild hepatic steatosis.
== END 2024-10-20 08:01 | disposition home or self-care (01) ==
PROVIDERS: PCP Nurse Practitioner Family; Visit Provider Nurse Practitioner Family
DX: R91.1 Solitary pulmonary nodule (principal); R05.3 Chronic cough
CPT/HCPCS: 71250

== ENCOUNTER 2025-04-06 14:15 | Outpatient (CLI) | payer MEDICARE, SELFPAY ==
--- NOTE | 2025-04-06 14:18 | MM_ITS ---
WS: [email or web address] BILATERAL 3D TOMOSYNTHESIS DIGITAL SCREENING MAMMOGRAPHY WITH CAD CLINICAL INFORMATION: SCREENING HISTORY: Screening mammogram. No current complaints. COMPARISON: 2022 TECHNIQUE: Bilateral CC and MLO views. FINDINGS: Scattered fibroglandular densities bilaterally. No suspicious focal mass, asymmetry, calcifications, or architectural distortion. No evidence of malignancy. Incidental punctate calcifications. MM/MM [facility] tomosynthesis [id number] IMPRESSION: DENSITY: There are scattered areas of fibroglandular density. BI-RADS: 2 - Benign. FOLLOW UP: 1 Year Follow-up Recommend return to annual screening mammography.
--- NOTE | 2025-04-06 15:12 | XR_ITS ---
WS: [email or web address] SCREENING DEXA SCAN [facility] CLINICAL INFORMATION: ASYMPTOMATIC MENOPAUSAL STATE COMPARISON: 2021 FINDINGS: The L1-L4 bone mineral density measures 1.417 g/cm2. This corresponds to a T score score of 2.0 and Z score of 3.1. Left femoral neck bone mineral density measures 0.893 g/cm2. This corresponds to a T score of -0.9 and Z score of 0.0. Right femoral neck bone mineral density measures 0.966 g/cm2. This corresponds to a T score -0.3of and Z score of 0.6. Mean femoral neck bone mineral density measures 0.929 g/cm2. This corresponds to a T score of -0.6 and Z score of 0.3. XR/XR DEXA axial skeleton* [id number] IMPRESSION: Normal bone mineralization. Patient's FRAX calculated 10 year probability for major osteoporotic fracture i s 10.0% and osteoporotic hip fracture is 1.5%.
== END 2025-04-06 14:16 | disposition home or self-care (01) ==
PROVIDERS: PCP Nurse Practitioner Family; Visit Provider Nurse Practitioner Family
DX: Z12.31 Encounter for screening mammogram for malignant neoplasm of breast (principal); Z78.0 Asymptomatic menopausal state; R92.323 Mammographic fibroglandular density, bilateral breasts; R92.1 Mammographic calcification found on diagnostic imaging of breast
CPT/HCPCS: 77063; 77067; 77080

== ENCOUNTER 2025-10-28 07:32 | Outpatient (CLI) | payer MEDICARE, SELFPAY ==
--- NOTE | 2025-10-28 07:37 | CT_ITS ---
WS: [email or web address] CT chest wo con [id number] HISTORY: CHRONIC COUGH/SOLITARY PULMONARY NODULE TECHNIQUE: Axial imaging performed through the thorax. Coronal and sagittal reformats are submitted. All CT scans at [facility] use at least one of these dose optimization techniques: automated exposure control; mA and/or kV adjustment per patient size (includes targeted exams where dose is matched to clinical indication); or iterative reconstruction. CONTRAST: None DLP: 481.76 mGy.cm COMPARISON: 10/20/2024, 08/19/2013 Lungs and central airway: Well aerated lungs. Reidentified is the well- circumscribed 6 mm noncalcified nodule in the LEFT upper lobe. No additional mass or nodule. No pneumonia. Pleura: Normal. No pleural effusion. Heart and pericardium: Normal size heart with no pericardial effusion. Mediastinum and kel: Small mediastinal and hilar lymph nodes. Similar to the prior study. Vessels: Minimal atherosclerosis aorta. Normal size pulmonary artery. Chest wall and lower neck: No soft tissue masses. Upper abdomen: Small hiatal hernia. No adrenal mass. Osseous structures: No destructive process. CT/CT chest wo con [id number] IMPRESSION: 1. Stable LEFT upper lobe well-circumscribed 6 mm noncalcified mass since 10/20. Recommend additional 12-month chest CT follow-up to ensure long-term sta bility. 2. No mediastinal or hilar adenopathy. 3. Lungs are otherwise clear. No evidence for pneumonitis or pneumonia.
== END 2025-10-28 07:33 | disposition home or self-care (01) ==
LOC: RAD 07:33
PROVIDERS: PCP Nurse Practitioner Family; Visit Provider Nurse Practitioner Family
DX: R05.3 Chronic cough (principal); R91.1 Solitary pulmonary nodule; R59.0 Localized enlarged lymph nodes; K44.9 Diaphragmatic hernia without obstruction or gangrene
CPT/HCPCS: 71250

== ENCOUNTER 2025-11-03 11:52 | Outpatient (CLI) | payer MEDICARE, SELFPAY | END 2025-11-03 11:53 | disposition home or self-care (01) | LOC: RT 11:57 | PROVIDERS: PCP Nurse Practitioner Family; Visit Provider Nurse Practitioner Family | DX: R05.3 Chronic cough (principal) | CPT/HCPCS: 94010; 94726; 94729 ==